=== PATIENT | male | born 1950 | race Caucasian/White ===

== ENCOUNTER 2017-09-08 19:16 | Inpatient (IN) | payer BC ==
[2017-09-08] MEDS ORDERED: Ondansetron INJ* 2 MG/ML VIAL IV ONE (20:50)
[2017-09-08] MEDS ORDERED: Morphine INJ* 4 MG/ML 1 ML CARPUJECT IV ONE (20:50)
[2017-09-08] MEDS ORDERED: NS 0.9% 1000 ML* 1,000 ML IV ONE (20:50)
[2017-09-08 21:27] LABS: Albumin 3.3 g/dL (3.2-5.2); BUN/Creatinine Ratio 20.6 (8-20); Calcium 9.7 mg/dL (8.6-10.3); EGFR African American 94.6 (>60); EGFR Non-African American 73.5 (>60); Potassium 4.1 mmol/L (3.5-5.0); Total Bilirubin 0.5 mg/dL (0.2-1.0); Total Protein 10.3 g/dL (6.4-8.9)
[2017-09-08 21:29] LABS: Troponin I 0.01 ng/mL (<0.04)
[2017-09-08] MEDS ORDERED: Iohexol 300* (CONTRAST) 10 ML SDV IV ONE (22:29)
[2017-09-08 23:50] LABS: Urine Bacteria Absent (Absent); Urine Bilirubin Negative (Negative); Urine Glucose Negative (Negative); Urine Nitrite Negative (Negative)
[2017-09-09 00:31] LABS: Hematocrit 40 % (42-52); Mean Corpuscular HGB Conc 35 g/dl (31-36); Mean Corpuscular Hemoglobin 33 pg (27-31); Mean Corpuscular Volume 94 fL (80-94); Mean Platelet Volume 8 um3 (7.4-10.4); Red Blood Count 4.28 10^6/ul (4.0-5.4); Red Cell Distribution Width 13 % (10.5-15); White Blood Count 8.7 10^3/ul (3.5-10.8)
[2017-09-09] MEDS ORDERED: Acetaminophen SUPP* 650 MG SUPP PR PRN (00:54)
[2017-09-09] MEDS ORDERED: LORazepam INJ* 2 MG/ML 1 ML VIAL IV PRN (00:55)
[2017-09-09] MEDS ORDERED: Ondansetron INJ* 2 MG/ML VIAL IV PRN (00:55)
--- NOTE | 2017-09-09 01:17 | HP ---
H&P (Free Text) History and Physical: PCP: Estelita Dunn MD Date/Time: 09/09/2017 0100 CC: abdominal pain HPI: Mr Conroy is a 66YO male HX recurrent L>R cellulitis currently with a PICC line receiving 2g ceftriaxone daily at 0830 from an admission to [facility] for sepsis 2nd RLE cellulitis from which he was discharged ~10 days ago. He reports onset of loose stool/diarrhea without bloody or black aspect progressing to abdominal pain/cramping & bloating Monday. His last BM was Monday morning and more formed than . There has been no black or bloody content. He has been passing flatus throughout today. He has had decreased PO intake since , some nausea, but only vomited in radiology after drinking contrast for CT. He denies B/U/F of urination, F/C, chest pain, SOB, and sweats. He saw his PCP Monday who gave him collection material to check for C.diff which he has turned into the ED tonight. CT shows SBO which is concerning as he has had no abdominal surgeries. PMedHx recurrent LE cellulitis : 10 in LLE : 2 RLE including the one for which he is currently on TX, reportedly group A strep pre-DM2 HTN MARIA ELENA on CPAP of 11.5 BPH depression Ambulatory Orders Aspirin [Aspirin 81 MG TAB] 81 mg PO 09/09/17 Finasteride TAB* [Proscar TAB*] 5 mg PO DAILY 09/09/17 Hydrochlorothiazide TAB* [Hydrodiuril TAB*] 25 mg PO DAILY 09/09/17 Meloxicam [Mobic] 15 mg PO 09/09/17 Montelukast Sodium TAB* [Singulair TAB*] 10 mg PO DAILY 09/09/17 Solifenacin Succinate [Vesicare] 10 mg PO 09/09/17 Tamsulosin CAP* [Flomax CAP*] 0.4 mg PO DAILY 09/09/17 Venlafaxine HCl [Venlafaxine HCl ER] 75 mg PO 09/09/17 cefTRIAXone(*) [Rocephin(*)] 2 gm IV 09/09/17 Allergies Clindamycin Allergy (Verified 09/08/17 19:26) Hives Sulfamethoxazole w/Trimethoprim [From Bactrim] Allergy (Verified 09/08/17 19:26) Hives PSurgHx R TKA L quadriceps repair tonsillectomy denies abdominal surgery SocHx: no tobacco, rare alcohol, no recreational drugs; lives with his ; retired from [employer] in [place], 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; full code status FamHx: Mother: passed in her 80s 2nd CAD; Father: passed in his 50s 2nd CAD; 1/ 2 sister: unknown; no brothers ROS: as above, otherwise reviewed and all were negative vitals: Vital Signs Temp 36.1 C 09/08/17 19:21 Pulse 101 09/08/17 19:21 Resp 18 09/08/17 21:38 BP 130/83 09/08/17 19:21 Pulse Ox 94 09/08/17 19:21 Intake & Output 09/08/17 09/08/17 09/09/17 11:59 23:59 11:59 Weight 123.831 kg Constitutional: NAD, normally developed, morbidly obese white male HEENM: atraumatic; sclera/conjunctiva: anicteric/clear; hearing: clinically intact; oropharynx: clear, mucosa tacky Neck: soft tissue: non-tender; thyroid: normal Pulmonary: clear to auscultation bilaterally, good aeration, no accessory muscle use CV: RR/RR, normal S1S2, no carotid bruit, no jugular venous distention, 2+ B DP/ PT, 1+ BLE edema Abdominal: soft, non-distended, non-tender, no rebound/guarding/rigidity, normoactive bowel sounds, no hepatosplenomegaly or masses, no costovertebral angle tenderness Musculoskeletal: general: grossly intact, RLE w/ YOSHI wrap Psychiatric orientation: AA&O to PPS affect: calm mood: cooperative eye contact: fair to good content: reliable responses: timely insight: good Testing: Lab Results 09/08/17 09/08/17 09/08/17 Range/Units 21:00 21:00 21:00 WBC 8.7 (3.5-10.8) 10^3/ul RBC 4.28 (4.0-5.4) 10^6/ul Hgb 14.0 (14.0-18.0) g/dl Hct 40 L (42-52) % MCV 94 (80-94) fL MCH 33 H (27-31) pg MCHC 35 (31-36) g/dl RDW 13 (10.5-15) % Plt Count 389 (150-450) 10^3/ul MPV 8 (7.4-10.4) um3 Neut % (Auto) 72.5 (38-83) % Lymph % (Auto) 17.5 L (25-47) % [place] % (Auto) 8.7 (1-9) % Eos % (Auto) 0.7 (0-6) % Baso % (Auto) 0.6 (0-2) % Absolute Neuts (auto) 6.3 (1.5-7.7) 10^3/ul Absolute Lymphs (auto) 1.5 (1.0-4.8) 10^3/ul Absolute Monos (auto) 0.8 (0-0.8) 10^3/ul Absolute Eos (auto) 0.1 (0-0.6) 10^3/ul Absolute Basos (auto) 0.1 (0-0.2) 10^3/ul Absolute Nucleated RBC 0.01 10^3/ul Nucleated RBC % 0.2 INR (Anticoag Therapy) 1.23 H (0.77-1.02) APTT 33.5 (26.0-36.3) seconds Sodium 130 L (133-145) mmol/L Potassium 4.1 (3.5-5.0) mmol/L Chloride 97 L (101-111) mmol/L Carbon Dioxide 27 (22-32) mmol/L Anion Gap 6 (2-11) mmol/L BUN 21 (6-24) mg/dL Creatinine 1.02 (0.67-1.17) mg/dL Est GFR ( Amer) 94.6 (>60) Est GFR (Non-Af Amer) 73.5 (>60) BUN/Creatinine Ratio 20.6 H (8-20) Glucose 113 H (70-100) mg/dL Lactic Acid (0.5-2.0) mmol/L Calcium 9.7 (8.6-10.3) mg/dL Total Bilirubin 0.50 (0.2-1.0) mg/dL AST 18 (13-39) U/L ALT 16 (7-52) U/L Alkaline Phosphatase 41 (34-104) U/L Troponin I 0.01 (<0.04) ng/mL Total Protein 10.3 H (6.4-8.9) g/dL Albumin 3.3 (3.2-5.2) g/dL Globulin 7.0 H (2-4) g/dL Albumin/Globulin Ratio 0.5 L (1-3) Lipase 20 (11.0-82.0) U/L Urine Color Urine Appearance Urine pH (5-9) Ur Specific [place] (1.010-1.030) Urine Protein (Negative) Urine Ketones (Negative) Urine Blood (Negative) Urine Nitrate (Negative) Urine Bilirubin (Negative) Urine Urobilinogen (Negative) Ur Leukocyte Esterase (Negative) Urine WBC (Auto) (Absent) Urine RBC (Auto) (Absent) Ur Squamous Epith Cells (Absent) Urine Bacteria (Absent) Urine Glucose (Negative) 09/08/17 09/08/17 Range/Units 21:00 23:25 WBC (3.5-10.8) 10^3/ul RBC (4.0-5.4) 10^6/ul Hgb (14.0-18.0) g/dl Hct (42-52) % MCV (80-94) fL MCH (27-31) pg MCHC (31-36) g/dl RDW (10.5-15) % Plt Count (150-450) 10^3/ul MPV (7.4-10.4) um3 Neut % (Auto) (38-83) % Lymph % (Auto) (25-47) % [place] % (Auto) (1-9) % Eos % (Auto) (0-6) % Baso % (Auto) (0-2) % Absolute Neuts (auto) (1.5-7.7) 10^3/ul Absolute Lymphs (auto) (1.0-4.8) 10^3/ul Absolute Monos (auto) (0-0.8) 10^3/ul Absolute Eos (auto) (0-0.6) 10^3/ul Absolute Basos (auto) (0-0.2) 10^3/ul Absolute Nucleated RBC 10^3/ul Nucleated RBC % INR (Anticoag Therapy) (0.77-1.02) APTT (26.0-36.3) seconds Sodium (133-145) mmol/L Potassium (3.5-5.0) mmol/L Chloride (101-111) mmol/L Carbon Dioxide (22-32) mmol/L Anion Gap (2-11) mmol/L BUN (6-24) mg/dL Creatinine (0.67-1.17) mg/dL Est GFR ( Amer) (>60) Est GFR (Non-Af Amer) (>60) BUN/Creatinine Ratio (8-20) Glucose (70-100) mg/dL Lactic Acid 0.9 (0.5-2.0) mmol/L Calcium (8.6-10.3) mg/dL Total Bilirubin (0.2-1.0) mg/dL AST (13-39) U/L ALT (7-52) U/L Alkaline Phosphatase (34-104) U/L Troponin I (<0.04) ng/mL Total Protein (6.4-8.9) g/dL Albumin (3.2-5.2) g/dL Globulin (2-4) g/dL Albumin/Globulin Ratio (1-3) Lipase (11.0-82.0) U/L Urine Color Ebony Urine Appearance Cloudy Urine pH 5.0 (5-9) Ur Specific [place] 1.038 H (1.010-1.030) Urine Protein 1+(30 mg/dl) H (Negative) Urine Ketones Negative (Negative) Urine Blood 1+ H (Negative) Urine Nitrate Negative (Negative) Urine Bilirubin Negative (Negative) Urine Urobilinogen Negative (Negative) Ur Leukocyte Esterase Negative (Negative) Urine WBC (Auto) Absent (Absent) Urine RBC (Auto) 3+(>10/hpf) H (Absent) Ur Squamous Epith Cells Present H (Absent) Urine Bacteria Absent (Absent) Urine Glucose Negative (Negative) ECG, personally reviewed: NSR rate 94, no ischemia CT abd/pel W, personally reviewed: FINDINGS: Positive for small bowel obstruction. There are multiple moderately dilated loops of small bowel with air -fluid levels. Collapsed loops distally. There is also mesenteric congestion associated with the dilated loops indicating some degree of mesenteric venous obstruction as well. Transition zone appears to be in a loop of bowel at the jejunoileal junction in where there is a narrowed segment of small bowel. Uncertain if this is a true stricture or just peristalsis in an area of adhesion. No free intraperitoneal air or fluid. Negative for colitis or diverticulitis. Normal appendix. There is some sludge and stones in a moderately distended gallbladder. Normal liver. Normal spleen. Normal pancreas. Normal adrenal glands. Impression: 66M presenting with abdominal pain and CT finding of SBO DIAGNOSIS & PLAN Primary SBO : NPO for bowel rest : NG to low intermittent suction : strict I&Os : IVFs : pain control : consider surgical consult in AM : supportive care RLE on outpatient TX via PICC for group A strep : obtain records from Dr Franz & Sulaiman general : continue daily 2g ceftriaxone IV at 0830 Secondary pre-DM2 : consistent carb diet : ACHS glucometry : correctional lispro HTN : hold HCTZ for now, monitor MARIA ELENA : continue CPAP of 11.5 BPH : continue finasteride, solifenacin, & tamsulosin depression : continue venlafaxine Admission Rational: inpatient for management of SBO not anticipated to be adequately resolved w/i 48h to allow for discharge DVTp: heparin SQ Code Status: full HCP:
--- NOTE | 2017-09-09 01:55 | ED ---
Jose Armando Sands Tiffany scriblavell for Tian Seaman on 09/08/17 at 2056 . Abdominal Pain/Male - HPI Summary HPI Summary: This patient is a 66 year old M referred from [facility] to [facility] accompanied by with a chief complaint of abdominal pain since a couple of days ago, worse since today. The pain is tight. The patient rates the pain 5/10 in severity. Symptoms aggravated by nothing. Symptoms alleviated by nothing. Patient reports diarrhea and nausea. Patient denies bloody stools and vomiting. The patient denies abdominal surgical history. - History of Current Complaint Chief Complaint: EDAbdPain Stated Complaint: BLOATING/ABD PAIN Time Seen by Provider: 09/08/17 20:43 Hx Obtained From: Patient Onset/Duration: Lasting Days - A couple, Still Present, Worse Since - Today Severity Currently: Moderate Pain Intensity: 6 Pain Scale Used: 0-10 Numeric Location: Diffuse Character: Other: - Tight Aggravating Factor(s): Nothing Alleviating Factor(s): Nothing Associated Signs And Symptoms: Positive: Nausea, Diarrhea. Negative: Blood in Stool, Vomiting - Allergies/Home Medications Allergies/Adverse Reactions: Allergies Allergy/AdvReac Type Severity Reaction Status Date / Time Clindamycin Allergy Hives Verified 09/08/17 19:26 Sulfamethoxazole Allergy Hives Verified 09/08/17 19:26 w/Trimethoprim [From Bactrim] PMH/Surg Hx/FS Hx/Imm Hx Previously Healthy: No - Hx of cellulitis, PICC line Opthamlomology History: Denies: Hx Legally Blind EENT History: Denies: Hx Deafness Infectious Disease History: No Infectious Disease History: Denies: Traveled Outside the [place] in Last 30 Days - Family History Known Family History: Positive: Other - Mother had heart problems - Social History Alcohol Use: Occasionally Hx Substance Use: No Substance Use Type: Reports: None Hx Tobacco Use: No Review of Systems Negative: Fever Positive: Abdominal Pain, Diarrhea, Nausea, Other - NEGATIVE: bloody stool. Negative: Vomiting All Other Systems Reviewed And Are Negative: Yes Physical Exam - Summary Physical Exam Summary: Appearance: Well appearing, no pain distress Skin: warm, dry, reflects adequate perfusion Head/face: normal Eyes: EOMI, MOHIT ENT: normal Neck: supple, non-tender Respiratory: CTA, breath sounds present Cardiovascular: RRR, pulses symmetrical Abdomen: Abdomen is distended, tenderness in LLQ Bowel: present Musculoskeletal: normal, strength/ROM intact Neuro: normal, sensory motor intact, A&Ox3 Triage Information Reviewed: Yes Vital Signs On Initial Exam: Initial Vitals Temp Pulse Resp BP Pulse Ox 97 F 101 18 130/83 94 09/08/17 19:21 09/08/17 19:21 09/08/17 19:21 09/08/17 19:21 09/08/17 19:21 Vital Signs Reviewed: Yes Diagnostics - Vital Signs Vital Signs Temp Pulse Resp BP Pulse Ox 09/08/17 19:21 97 F 101 18 130/83 94 - Laboratory Lab Results: Lab Results 09/08/17 09/08/17 09/08/17 Range/Units 21:00 21:00 21:00 WBC 8.7 (3.5-10.8) 10^3/ul RBC 4.28 (4.0-5.4) 10^6/ul Hgb 14.0 (14.0-18.0) g/dl Hct 40 L (42-52) % MCV 94 (80-94) fL MCH 33 H (27-31) pg MCHC 35 (31-36) g/dl RDW 13 (10.5-15) % Plt Count 389 (150-450) 10^3/ul MPV 8 (7.4-10.4) um3 Neut % (Auto) 72.5 (38-83) % Lymph % (Auto) 17.5 L (25-47) % [place] % (Auto) 8.7 (1-9) % Eos % (Auto) 0.7 (0-6) % Baso % (Auto) 0.6 (0-2) % Absolute Neuts (auto) 6.3 (1.5-7.7) 10^3/ul Absolute Lymphs (auto) 1.5 (1.0-4.8) 10^3/ul Absolute Monos (auto) 0.8 (0-0.8) 10^3/ul Absolute Eos (auto) 0.1 (0-0.6) 10^3/ul Absolute Basos (auto) 0.1 (0-0.2) 10^3/ul Absolute Nucleated RBC 0.01 10^3/ul Nucleated RBC % 0.2 INR (Anticoag Therapy) 1.23 H (0.77-1.02) APTT 33.5 (26.0-36.3) seconds Sodium 130 L (133-145) mmol/L Potassium 4.1 (3.5-5.0) mmol/L Chloride 97 L (101-111) mmol/L Carbon Dioxide 27 (22-32) mmol/L Anion Gap 6 (2-11) mmol/L BUN 21 (6-24) mg/dL Creatinine 1.02 (0.67-1.17) mg/dL Est GFR ( Amer) 94.6 (>60) Est GFR (Non-Af Amer) 73.5 (>60) BUN/Creatinine Ratio 20.6 H (8-20) Glucose 113 H (70-100) mg/dL Lactic Acid (0.5-2.0) mmol/L Calcium 9.7 (8.6-10.3) mg/dL Total Bilirubin 0.50 (0.2-1.0) mg/dL AST 18 (13-39) U/L ALT 16 (7-52) U/L Alkaline Phosphatase 41 (34-104) U/L Troponin I 0.01 (<0.04) ng/mL Total Protein 10.3 H (6.4-8.9) g/dL Albumin 3.3 (3.2-5.2) g/dL Globulin 7.0 H (2-4) g/dL Albumin/Globulin Ratio 0.5 L (1-3) Lipase 20 (11.0-82.0) U/L Urine Color Urine Appearance Urine pH (5-9) Ur Specific [place] (1.010-1.030) Urine Protein (Negative) Urine Ketones (Negative) Urine Blood (Negative) Urine Nitrate (Negative) Urine Bilirubin (Negative) Urine Urobilinogen (Negative) Ur Leukocyte Esterase (Negative) Urine WBC (Auto) (Absent) Urine RBC (Auto) (Absent) Ur Squamous Epith Cells (Absent) Urine Bacteria (Absent) Urine Glucose (Negative) 09/08/17 09/08/17 Range/Units 21:00 23:25 WBC (3.5-10.8) 10^3/ul RBC (4.0-5.4) 10^6/ul Hgb (14.0-18.0) g/dl Hct (42-52) % MCV (80-94) fL MCH (27-31) pg MCHC (31-36) g/dl RDW (10.5-15) % Plt Count (150-450) 10^3/ul MPV (7.4-10.4) um3 Neut % (Auto) (38-83) % Lymph % (Auto) (25-47) % [place] % (Auto) (1-9) % Eos % (Auto) (0-6) % Baso % (Auto) (0-2) % Absolute Neuts (auto) (1.5-7.7) 10^3/ul Absolute Lymphs (auto) (1.0-4.8) 10^3/ul Absolute Monos (auto) (0-0.8) 10^3/ul Absolute Eos (auto) (0-0.6) 10^3/ul Absolute Basos (auto) (0-0.2) 10^3/ul Absolute Nucleated RBC 10^3/ul Nucleated RBC % INR (Anticoag Therapy) (0.77-1.02) APTT (26.0-36.3) seconds Sodium (133-145) mmol/L Potassium (3.5-5.0) mmol/L Chloride (101-111) mmol/L Carbon Dioxide (22-32) mmol/L Anion Gap (2-11) mmol/L BUN (6-24) mg/dL Creatinine (0.67-1.17) mg/dL Est GFR ( Amer) (>60) Est GFR (Non-Af Amer) (>60) BUN/Creatinine Ratio (8-20) Glucose (70-100) mg/dL Lactic Acid 0.9 (0.5-2.0) mmol/L Calcium (8.6-10.3) mg/dL Total Bilirubin (0.2-1.0) mg/dL AST (13-39) U/L ALT (7-52) U/L Alkaline Phosphatase (34-104) U/L Troponin I (<0.04) ng/mL Total Protein (6.4-8.9) g/dL Albumin (3.2-5.2) g/dL Globulin (2-4) g/dL Albumin/Globulin Ratio (1-3) Lipase (11.0-82.0) U/L Urine Color [place] Urine Appearance Cloudy Urine pH 5.0 (5-9) Ur Specific [place] 1.038 H (1.010-1.030) Urine Protein 1+(30 mg/dl) H (Negative) Urine Ketones Negative (Negative) Urine Blood 1+ H (Negative) Urine Nitrate Negative (Negative) Urine Bilirubin Negative (Negative) Urine Urobilinogen Negative (Negative) Ur Leukocyte Esterase Negative (Negative) Urine WBC (Auto) Absent (Absent) Urine RBC (Auto) 3+(>10/hpf) H (Absent) Ur Squamous Epith Cells Present H (Absent) Urine Bacteria Absent (Absent) Urine Glucose Negative (Negative) Result Diagrams: 09/08/17 21:00 09/08/17 21:00 Lab Statement: Any lab studies that have been ordered have been reviewed, and results considered in the medical decision making process. - CT Abd/Pel CT Interpretation Completed By: Radiologist - Positive for small bowel obstruction. There are multiple moderately dilated loops of small bowel with air -fluid levels. Collapsed loops distally. There is also mesenteric congestion associated with the dilated loops indicating some degree of mesenteric venous obstruction as well. Transition zone appears to be in a loop of bowel at the jejunoileal junction in where there is a narrowed segment of small bowel. Uncertain if this is a true stricture or just peristalsis in an area of adhesion. No free intraperitoneal air or free fluid. Negative for colitis or diverticulitis. Normal appendix. There is some sludge and stones in a moderately distended gallbladder. Normal liver. Normal spleen. Normal pancreas. Normal adrenal glands. Normal kidneys urinary tract and urinary bladder. ED physician has reviewed this radiology report. - EKG 20:58 Cardiac Rate: NL EKG Rhythm: Sinus Rhythm - 94 BPM EKG Interpretation: No acute changes Abdominal Pain Fem Course/Dx - Course Course Of Treatment: This patient is a 66 year old M referred from [facility] to [facility] accompanied by with a chief complaint of abdominal pain since a couple of days ago, worse since today. An EKG reveals sinus rhythm (94 BPM) and no acute changes. CT Abd/Pel reveals, per radiologist, Positive for small bowel obstruction. There are multiple moderately dilated loops of small bowel with air-fluid levels. Collapsed loops distally. There is also mesenteric congestion associated with the dilated loops indicating some degree of mesenteric venous obstruction as well. Transition zone appears to be in a loop of bowel at the jejunoileal junction in where there is a narrowed segment of small bowel. Uncertain if this is a true stricture or just peristalsis in an area of adhesion. No free intraperitoneal air or free fluid. Negative for colitis or diverticulitis. Normal appendix. There is some sludge and stones in a moderately distended gallbladder. Normal liver. Normal spleen. Normal pancreas. Normal adrenal glands. Normal kidneys urinary tract and urinary bladder. Bloodwork/UA obtained. In the ED course the patient was given Morphine and Zofran. We discussed patient care with Dr. Pruett (hospitalist) who agreed to admit the patient. as per discussion he will call surgery am for consult. The patient is agreeable with this plan. - Diagnoses Differential Diagnosis/HQI/PQRI: Bowel Obstruction, Constipation, Diverticulitis , Urinary Tract Infection Provider Diagnoses: Small bowel obstruction - Provider Notifications Discussed Care Of Patient With: Cyrus Pruett Time Discussed With Above Provider: 00:20 Instructed by Provider To: Other - Dr. Pruett (hospitalist) agreed to admit the patient Discharge - Discharge Plan Condition: Fair Disposition: ADMITTED TO [facility] The documentation as recorded by the Jose Armando qureshi Tiffany accurately reflects the service I personally performed and the decisions made by , Tian Seaman.
[2017-09-09 03:38] LABS: EGFR African American 100.2 (>60); EGFR Non-African American 77.9 (>60)
[2017-09-09] MEDS: NS 0.9% 1000 ML* 1,000 ML IV SCH ×3 (04:27→20:58)
[2017-09-09] MEDS: fentaNYL* 50 MCG/ML 2 ML VIAL (100 MCG VIAL) IV SLOW PU PRN ×2 (05:07→22:55)
[2017-09-09 05:24] LABS: Hematocrit 35 % (42-52); Mean Corpuscular HGB Conc 35 g/dl (31-36); Mean Corpuscular Hemoglobin 32 pg (27-31); Mean Corpuscular Volume 93 fL (80-94); Mean Platelet Volume 7 um3 (7.4-10.4); Red Blood Count 3.73 10^6/ul (4.0-5.4); Red Cell Distribution Width 13 % (10.5-15); White Blood Count 7.1 10^3/ul (3.5-10.8)
[2017-09-09 05:38] LABS: BUN/Creatinine Ratio 24.7 (8-20); Calcium 8.9 mg/dL (8.6-10.3); EGFR African American 116.7 (>60); EGFR Non-African American 90.7 (>60); Potassium 3.8 mmol/L (3.5-5.0)
[2017-09-09] MEDS: Aspirin EC Low Dose* 81 MG TAB.EC PO SCH (08:19)
[2017-09-09] MEDS: Finasteride TAB* 5 MG PO SCH (08:19)
[2017-09-09] MEDS: Tamsulosin CAP* 0.4 MG PO SCH (08:20)
[2017-09-09] MEDS: Venlafaxine EXT RELEASE CAP* 75 MG PO SCH (08:20)
[2017-09-09] MEDS: CMCS Solifenacin(NF) 5 MG TAB PO SCH (08:20)
[2017-09-09] MEDS: Montelukast Sodium TAB* 10 MG PO SCH (08:20)
--- NOTE | 2017-09-09 08:50 | RAD ---
Indication: Abdominal distention. Contrast: Administered 127.2 ml of OMNIPAQUE 300 mg/ml CT of the abdomen and pelvis was performed after oral and IV contrast administration. Coronal and sagittal reconstructed images were obtained. The lung bases demonstrate no pleural fluid, nodules or masses. Heart is of normal size without evidence of pericardial effusion. Liver is normal in size. No focal lesions or intrahepatic ductal dilatation is noted. The gallbladder demonstrates some high density material in the dependent portion and the possibility of cholelithiasis should BE considered. No pericholecystic fluid or wall thickening is identified. The pancreas demonstrates no mass or pancreatic duct dilatation. The spleen is normal in size. Nodularity of the adrenal glands is noted likely representing adrenal hyperplasia. There may be a small nodule in the left adrenal gland measuring 11 mm. The kidneys demonstrate symmetric nephrograms without hydronephrosis. Aorta and inferior vena cava are unremarkable. Retroperitoneal lymph nodes with fatty hilum measuring 10 mm is noted. There is a dilated stomach noted. Moderately dilated loops of small bowel are noted. There are collapsed loops of distal bowel and there is likely a zone of transition in the right lower quadrant. This may represent an early or partial small bowel obstruction. There is partially collapsed colon with fluid and stool in the within it. No hernias are identified. The colon demonstrates fluid throughout the colon. CT of the pelvis demonstrates no retroperitoneal or pelvic lymphadenopathy. The urinary bladder is otherwise unremarkable. IMPRESSION: There is suggestion of a small bowel obstruction. There appears to be a zone of transition just to the right of midline in the pelvis. No other masses or fluid collections are identified. Degenerative changes of the lumbar spine is noted at multiple levels.
[2017-09-09] MEDS: Famotidine IV* 10 MG/ML 2 ML (20 mg) IV SCH ×2 (08:52→20:52)
[2017-09-09] MEDS: cefTRIAXone VIAL(*) 2,000 MG in NS 0.9% 100 ML* 100 ML IVPB SCH (08:57)
[2017-09-09] MEDS ORDERED: Influenza VAC *QUAD* 2017-18* 0.5 ML SYRINGE IM ONE (09:00)
[2017-09-09] MEDS ORDERED: Famotidine IV * 20 MG in NS 0.9% 100 ML* 100 ML IVPB SCH (09:00)
[2017-09-10] MEDS: NS 0.9% 1000 ML* 1,000 ML IV SCH ×2 (06:04→17:12)
[2017-09-10] MEDS: Heparin VIAL(*) 5000 UNITS/ML VIAL (FIVE THOUSAND) SUBCUT SCH ×3 (06:05→20:33)
[2017-09-10] MEDS: cefTRIAXone VIAL(*) 2,000 MG in NS 0.9% 100 ML* 100 ML IVPB SCH (08:30)
--- NOTE | 2017-09-10 09:16 | PN ---
Subjective Date of Service: 09/10/17 Interval History: Patient here w/ SBO. Tolerating NG tube. Has not passed flatus or stool. Minimal abdominal discomfort. Has no h/o abdominal surgery. RT knee painful, difficult to bear weight. Had cellulitis RLE few weeks ago. Has appt in [place] w/ orthopedics to evaluate. Family History: Unchanged from Admission Social History: Unchanged from Admission Past Medical History: Unchanged from Admission Objective Active Medications: Acetaminophen (Tylenol Supp*) 650 mg ID Q6H PRN PRN Reason: FEVER/PAIN Aspirin (Aspirin Ec Low Dose*) 81 mg PO DAILY [facility] Last Admin: 09/09/17 08:19 Dose: Not Given Famotidine (Pepcid Iv*) 20 mg IV BID [facility] Last Admin: 09/09/17 20:52 Dose: 20 mg Fentanyl Citrate (Fentanyl*) 25 mcg IV SLOW PU Q2H PRN PRN Reason: PAIN Last Admin: 09/09/17 22:55 Dose: 25 mcg Finasteride (Proscar Tab*) 5 mg PO DAILY [facility] Last Admin: 09/09/17 08:19 Dose: Not Given Heparin Sodium (Porcine) (Heparin Vial(*)) 5,000 units SUBCUT Q8HR [facility] Last Admin: 09/10/17 06:05 Dose: 5,000 units Heparin Sodium (Porcine) (Heparin Flush Picc/Ml/Cvc(*)) 1 - 3 ml FLUSH 0600, 1800 [facility] PRN Reason: Protocol Last Admin: 09/10/17 06:06 Dose: 1 ml Sodium Chloride (Ns 0.9% 1000 Ml*) 1,000 mls @ 125 mls/hr IV PER RATE [facility] Last Admin: 09/10/17 06:04 Dose: 125 mls/hr Ceftriaxone Sodium 2,000 mg/ (Sodium Chloride) 100 mls @ 400 mls/hr IVPB 0830 [facility] Last Admin: 09/10/17 08:30 Dose: 400 mls/hr Lorazepam (Ativan Inj*) 0.5 mg IV BEDTIME PRN PRN Reason: SLEEP Montelukast Sodium (Singulair Tab*) 10 mg PO DAILY [facility] Last Admin: 09/09/17 08:20 Dose: Not Given Ondansetron HCl (Zofran Inj*) 4 mg IV Q6H PRN PRN Reason: NAUSEA Solifenacin (Vesicare(Nf)) 10 mg PO DAILY [facility] Last Admin: 09/09/17 08:20 Dose: Not Given Tamsulosin HCl (Flomax Cap*) 0.4 mg PO DAILY [facility] Last Admin: 09/09/17 08:20 Dose: Not Given Venlafaxine HCl (Effexor Xr Cap*) 75 mg PO DAILY [facility] Last Admin: 09/09/17 08:20 Dose: Not Given Vital Signs - 8 hr 09/10/17 04:08 Temperature 36.9 C Pulse Rate 76 Respiratory 16 Rate Blood Pressure 137/79 (mmHg) O2 Sat by Pulse 93 Oximetry Oxygen Devices in Use Now: None Appearance: no distress Ears/Nose/Mouth/Throat: Clear Oropharnyx Neck: NL Appearance and Movements; NL JVP Respiratory: Symmetrical Chest Expansion and Respiratory Effort, Clear to Auscultation Cardiovascular: NL Sounds; No Murmurs; No JVD Abdominal: NL Sounds; No Tenderness; No Distention Extremities: - - RT knee enlarged, warm, no effusion. RT distal LE w/o significant erythema, edema Neurological: Alert and Oriented x 3 Lines/Tubes/Other Access: Clean, Dry and Intact Naso-enteral Tube, Clean, Dry and Intact Peripheral IV Result Diagrams: 09/09/17 05:07 09/09/17 05:07 Additional Lab and Data: Laboratory Tests 09/08/17 09/08/17 09/08/17 21:00 21:00 21:00 Hemoglobin A1c 6.2 H Lactic Acid 0.9 Total Protein 10.3 H Albumin 3.3 Microbiology and Other Data: Microbiology 09/09/17 05:40 Nasal Screen MRSA (PCR)([facility]) - Final Nasal Mrsa Negative Assess/Plan/Problems-Billing Assessment: 66 year old man admitted w/ SBO, no history of abdominal surgery. - Patient Problems (1) Small bowel obstruction Current Visit: Yes Status: Acute Priority: High Code(s): K56.609 - UNSP INTESTNL OBST, UNSP TO PARTIAL VERSUS COMPLETE OBST SNOMED Code(s): 599592661 Comment: - Continue bowel rest, NGT - maintain hydration w/ IV saline - monitor electrolytes - will discuss with Dr. Phelps, unusual to have SBO w/o history of surgery (2) DVT prophylaxis Current Visit: Yes Status: Chronic Priority: Low Code(s): IFT5646 - SNOMED Code(s): 846894607 Comment: - SCDs (3) Paraproteinemia Current Visit: Yes Status: Chronic Priority: Medium Code(s): D89.2 - HYPERGAMMAGLOBULINEMIA, UNSPECIFIED SNOMED Code(s): 606133760 Comment: - patient has very high serum protein, low albumin, will check SPEP , may have MGUS (4) Septic arthritis of knee, right Current Visit: Yes Status: Acute Priority: Medium Code(s): M00.9 - PYOGENIC ARTHRITIS, UNSPECIFIED SNOMED Code(s): 918532270 Comment: -RT knee warm, painful to bear weight, known h/o replacement -Will check CRP, ESR re deep infection -Will ask orthopedics to evaluate, consider joint tap Status and Disposition: continued inpatient stay for consults, NG tube management
[2017-09-10] MEDS: Finasteride TAB* 5 MG PO SCH (09:26)
[2017-09-10] MEDS: Aspirin EC Low Dose* 81 MG TAB.EC PO SCH (09:26)
[2017-09-10] MEDS: Montelukast Sodium TAB* 10 MG PO SCH (09:26)
[2017-09-10] MEDS: Venlafaxine EXT RELEASE CAP* 75 MG PO SCH (09:27)
[2017-09-10] MEDS: CMCS Solifenacin(NF) 5 MG TAB PO SCH (09:27)
[2017-09-10] MEDS: Tamsulosin CAP* 0.4 MG PO SCH (09:27)
[2017-09-10] MEDS: Famotidine IV* 10 MG/ML 2 ML (20 mg) IV SCH ×2 (09:30→20:33)
--- NOTE | 2017-09-10 12:51 | RAD ---
Indication: Follow-up small bowel obstruction Flat plate of the abdomen demonstrates nasogastric tube in place. Moderately dilated loops of small bowel are noted. There is contrast in the colon. No organomegaly is noted. IMPRESSION: Contrast in the colon. Dilated air-fluid levels consistent with small bowel obstruction persists.
--- NOTE | 2017-09-10 12:52 | RAD ---
Indication: Right knee pain. 2 views of the right knee demonstrates a suprapatellar effusion. Right knee prosthesis is present. IMPRESSION: Suprapatellar effusion. Patient is status post right knee replacement.
[2017-09-10] MEDS: fentaNYL* 50 MCG/ML 2 ML VIAL (100 MCG VIAL) IV SLOW PU PRN (19:24)
[2017-09-10] MEDS ORDERED: Morphine INJ* 2 MG/ML 1 ML SYRINGE (TWO MG - NEW SYRINGE VERSION) IV PRN (19:31)
--- NOTE | 2017-09-10 21:34 | CONS ---
CC: Fernando Dunn MD SURGICAL CONSULTATION REPORT: DATE OF CONSULT: 09/10/17 REASON FOR CONSULT: Small bowel obstruction. HISTORY OF PRESENT ILLNESS: This is a 66-year-old gentleman with no history of prior abdominal surgery, who has been undergoing a long-term IV antibiotic treatment for recurrent lower extremity cellulitis and concern of seeding of total knee replacement. He presented to the [facility] with abdominal bloating and pain, colicky in nature, which began on Monday, . He had a bowel movement, Monday morning, but had not passed any flatus on Monday. He came to the emergency room Monday evening and then Monday early childhood worker was admitted with a diagnosis of small bowel obstruction based on CT findings. Over the course of the past day, the patient was managed with nasogastric tube decompression, IV fluids, and he reports he feels his pain is better. He did have a small bowel movement and passed gas once this morning. He denies any nausea or vomiting associated with this episode. He has had no previous episodes of obstructions in the past. He denies any recent travel or sick contacts. He denies any deviation from his typical diet and reports his initial concern, based on his symptoms. was that he may have C. diff colitis, which he has had in the past. He is having no fevers or chills. PAST MEDICAL HISTORY: High blood pressure; recurrent cellulitis, lower extremities; obstructive sleep apnea; prediabetic; BPH; depression. PAST SURGICAL HISTORY: Left quadriceps repair, right total knee replacement, and tonsillectomy in 1960s. MEDICATIONS: Home medications are: 1. Hydrochlorothiazide. 2. Singulair. 3. Finasteride. 4. Flomax. 5. Rocephin. 6. Venlafaxine. 7. VESIcare. 8. Mobic. 9. Aspirin. ALLERGIES: CLINDAMYCIN and BACTRIM. FAMILY HISTORY: Mother had coronary artery disease and father had coronary artery disease. SOCIAL HISTORY: Not a smoker. 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 He is . REVIEW OF SYSTEMS: A 14-point review of systems was completed and significant for the above-mentioned history; otherwise is negative. PHYSICAL EXAM: He is an obese 66-year-old gentleman in no acute distress. HEENT Examination: Reveals NG tube in good position. Head is normocephalic and atraumatic. Sclerae anicteric. Neck is symmetrical and trachea is midline. Lungs are clear to auscultation bilaterally without wheezes, rales, or rhonchi. Heart: Regular S1, S2, but no murmurs, rubs or gallops. Abdomen: Obese and without scars. Bowel sounds are present. It is soft with some mild diffuse tenderness with no rebound or guarding. There are no hernias palpated. He has rectus diastasis. Extremities are warm. DIAGNOSTIC STUDIES/LAB DATA: From 09/09/17, WBC shows 7.1, hemoglobin was 12.0 , hematocrit 35, platelet count 328. Sodium 131, potassium 3.8, chloride 100, bicarb 26, BUN 21, creatinine 0.85, glucose 115. CT scan images were reviewed. Findings were notable for dilated loops of small and large bowel with evidence of air and fluid within the colon. An area of decompressed small bowel exists towards the right side of the pelvis and there is no inflammatory change noted. Abdominal x-ray from 09/10/17 was reviewed and shows contrast within the large bowel with moderately dilated loops of small bowel. IMPRESSION: A 66-year-old male with resolving obstructive bowel process. It is unclear if this is actually a partial primary small bowel obstruction with no cardinal findings versus a functional bowel obstruction (ileus). He does not have a surgical abdomen. PLAN/RECOMMENDATIONS: The patient does seem to be improving with IV hydration and nasogastric decompression and so would continue the same. Repeat x-ray in the morning to check his progress. There is no plan for a surgical intervention at this time and the plan was discussed with the patient and his , who agreed. [facility] will continue to follow with you. [id number]/[facility] #: [id number] [facility]TD[facility]
[2017-09-11] MEDS: NS 0.9% 1000 ML* 1,000 ML IV SCH ×2 (03:26→11:54)
[2017-09-11] MEDS: Heparin VIAL(*) 5000 UNITS/ML VIAL (FIVE THOUSAND) SUBCUT SCH ×3 (05:18→22:00)
[2017-09-11 05:54] LABS: Hematocrit 34 % (42-52); Hemoglobin 11.7 g/dl (14.0-18.0); Mean Corpuscular HGB Conc 35 g/dl (31-36); Mean Corpuscular Hemoglobin 32 pg (27-31); Mean Corpuscular Volume 92 fL (80-94); Mean Platelet Volume 7 um3 (7.4-10.4); Red Blood Count 3.65 10^6/ul (4.0-5.4); Red Cell Distribution Width 13 % (10.5-15)
[2017-09-11 06:02] LABS: BUN/Creatinine Ratio 22.2 (8-20); Calcium 8.5 mg/dL (8.6-10.3); EGFR African American 164.9 (>60); EGFR Non-African American 128.2 (>60); Potassium 3.5 mmol/L (3.5-5.0)
[2017-09-11] MEDS ORDERED: Docusate CAP* 100 MG PO PRN (07:58)
[2017-09-11] MEDS ORDERED: Glycerin ADULT SUPP PR PRN (07:58)
[2017-09-11] MEDS: Finasteride TAB* 5 MG PO SCH (08:27)
[2017-09-11] MEDS: Famotidine IV* 10 MG/ML 2 ML (20 mg) IV SCH ×2 (08:27→19:48)
[2017-09-11] MEDS: Venlafaxine EXT RELEASE CAP* 75 MG PO SCH (08:27)
[2017-09-11] MEDS: Aspirin EC Low Dose* 81 MG TAB.EC PO SCH (08:27)
[2017-09-11] MEDS: Montelukast Sodium TAB* 10 MG PO SCH (08:27)
[2017-09-11] MEDS: Tamsulosin CAP* 0.4 MG PO SCH (08:27)
[2017-09-11] MEDS: cefTRIAXone VIAL(*) 2,000 MG in NS 0.9% 100 ML* 100 ML IVPB SCH (08:27)
--- NOTE | 2017-09-11 08:43 | RAD ---
INDICATION: Small bowel obstruction, follow-up. COMPARISON: Comparison is made with a prior CT of the abdomen and pelvis from September 08, 2017 and a prior KUB series from September 10, 2017 TECHNIQUE: Supine and upright views of the abdomen were obtained. FINDINGS: There is a nasogastric tube present. The catheter tip projects in the left upper quadrant. The side port is at the level of the gastroesophageal junction. Contrast is seen throughout the colon from the prior CT study. The small bowel colon appear nondistended. The previously noted mild small bowel distention appears resolved. No free intraperitoneal air is seen. IMPRESSION: RESOLVING SMALL BOWEL OBSTRUCTION.
--- NOTE | 2017-09-11 08:59 | PN ---
Subjective Date of Service: 09/11/17 Interval History: Patient had small bowel movement yesterday and this morning. He is passing flatus. He tolerated clamping NG tube and taking a few pills this morning. Seen by Dr. Phelps for surgery consult yesterday. Sees Dr. Arriaga in [place] for urology. Family History: Unchanged from Admission Social History: Unchanged from Admission Past Medical History: Unchanged from Admission Objective Active Medications: Acetaminophen (Tylenol Supp*) 650 mg UT Q6H PRN PRN Reason: FEVER/PAIN Aspirin (Aspirin Ec Low Dose*) 81 mg PO DAILY [facility] Last Admin: 09/11/17 08:27 Dose: 81 mg Docusate Sodium (Colace Cap*) 100 mg PO BID PRN PRN Reason: CONSTIPATION Last Admin: 09/11/17 08:27 Dose: 100 mg Famotidine (Pepcid Iv*) 20 mg IV BID [facility] Last Admin: 09/11/17 08:27 Dose: 20 mg Finasteride (Proscar Tab*) 5 mg PO DAILY [facility] Last Admin: 09/11/17 08:27 Dose: 5 mg Glycerin (Glycerin Adult Supp*) 1 supp UT DAILY PRN PRN Reason: CONSTIPATION Heparin Sodium (Porcine) (Heparin Vial(*)) 5,000 units SUBCUT Q8HR [facility] Last Admin: 09/11/17 05:18 Dose: 5,000 units Heparin Sodium (Porcine) (Heparin Flush Picc/Ml/Cvc(*)) 1 - 3 ml FLUSH 0600, 1800 [facility] PRN Reason: Protocol Last Admin: 09/11/17 05:18 Dose: 1 ml Sodium Chloride (Ns 0.9% 1000 Ml*) 1,000 mls @ 125 mls/hr IV PER RATE [facility] Last Admin: 09/11/17 03:26 Dose: 125 mls/hr Ceftriaxone Sodium 2,000 mg/ (Sodium Chloride) 100 mls @ 400 mls/hr IVPB 0830 [facility] Last Admin: 09/11/17 08:27 Dose: 400 mls/hr Lorazepam (Ativan Inj*) 0.5 mg IV BEDTIME PRN PRN Reason: SLEEP Montelukast Sodium (Singulair Tab*) 10 mg PO DAILY [facility] Last Admin: 09/11/17 08:27 Dose: 10 mg Morphine Sulfate (Morphine Inj (Syringe)*) 2 mg IV Q4H PRN PRN Reason: PAIN - MILD Ondansetron HCl (Zofran Inj*) 4 mg IV Q6H PRN PRN Reason: NAUSEA Tamsulosin HCl (Flomax Cap*) 0.4 mg PO DAILY [facility] Last Admin: 09/11/17 08:27 Dose: 0.4 mg Venlafaxine HCl (Effexor Xr Cap*) 75 mg PO DAILY [facility] Last Admin: 09/11/17 08:27 Dose: 75 mg Vital Signs - 8 hr 09/11/17 09/11/17 09/11/17 03:24 07:30 08:00 Temperature 36.8 C 36.8 C Pulse Rate 73 72 Respiratory 16 17 17 Rate Blood Pressure 154/82 123/75 (mmHg) O2 Sat by Pulse 95 98 Oximetry Oxygen Devices in Use Now: None Appearance: alert, no distress Eyes: No Scleral Icterus Neck: NL Appearance and Movements; NL JVP Respiratory: Symmetrical Chest Expansion and Respiratory Effort Cardiovascular: NL Sounds; No Murmurs; No JVD Abdominal: NL Sounds; No Tenderness; No Distention, No Hepatosplenomegaly Skin: - - RLE w/ chronic venous stasis changes Neurological: Alert and Oriented x 3, NL Gait Lines/Tubes/Other Access: Clean, Dry and Intact Peripheral IV, Clean, Dry and Intact PICC Line - LT UE Result Diagrams: 09/11/17 05:25 09/11/17 05:25 Assess/Plan/Problems-Billing Assessment: 66 year old man admitted w/ SBO, no history of abdominal surgery. - Patient Problems (1) Small bowel obstruction Current Visit: Yes Status: Acute Priority: High Code(s): K56.609 - UNSP INTESTNL OBST, UNSP TO PARTIAL VERSUS COMPLETE OBST SNOMED Code(s): 273568838 Comment: - patient improving, can clamp NGT and try clear liquids. - reduce rate of IV saline - electrolytes stable (2) DVT prophylaxis Current Visit: Yes Status: Chronic Priority: Low Code(s): YHQ9864 - SNOMED Code(s): 896234841 Comment: - SCDs (3) Paraproteinemia Current Visit: Yes Status: Chronic Priority: Medium Code(s): D89.2 - HYPERGAMMAGLOBULINEMIA, UNSPECIFIED SNOMED Code(s): 140791604 Comment: - SPEP pending, may have MGUS (4) Septic arthritis of knee, right Current Visit: Yes Status: Acute Priority: Medium Code(s): M00.9 - PYOGENIC ARTHRITIS, UNSPECIFIED SNOMED Code(s): 939711659 Comment: -RT knee warm, painful to bear weight, known h/o replacement -Will check CRP, ESR re deep infection -Asked Dr. Cisneros of orthopedics to evaluate, consider joint tap -Continue ceftriaxone Status and Disposition: continued inpatient stay for consults, NG tube management
--- NOTE | 2017-09-11 11:14 | PN ---
Progress Note - Progress Note Date of Service: 09/11/17 Note: HD#2 SBO Afeb No pain, No N/V. Thirsty. Passing flatus Abd: obese, soft nontender AXR: SBO resolved, contrast now in colon IMPR: Resolving SBO D/C NGT Decrease IVF Increase po's Disch when jacinto po's well
[2017-09-11] MEDS: EMOLLIENT TOPICAL SCH (14:27)
[2017-09-11] MEDS: BETAMETHASONE TOPICAL SCH ×2 (14:30→19:48)
[2017-09-11] MEDS: CLOTRIMAZOLE TOPICAL SCH ×2 (14:30→19:48)
[2017-09-11 14:46] LABS: Body Fluid Total Cells Counted 100; Body Fluid WBC 40990 /mcL
[2017-09-11 14:47] LABS: Body Fluid Appearance Bloody
[2017-09-11] MEDS ORDERED: Acetaminophen TAB* 325 MG PO PRN (16:30)
[2017-09-11] MEDS ORDERED: Acetaminophen TAB* 325 MG ONE (16:35)
--- NOTE | 2017-09-11 17:14 | CONS ---
CONSULTATION REPORT: DATE OF CONSULT: 09/11/17 CHIEF COMPLAINT: Right knee pain. HISTORY OF PRESENT ILLNESS: Sandeep is a 66-year-old man who has a history of right knee replacement followed by an infection and a two-stage revision of the right knee. Re-implantation of the knee replacement was in 2014. He has a problem with recurrent cellulitis and 2 weeks ago, started having some redness of his right lower extremity. He was admitted to the [facility], treated for cellulitis and then was discharged to the hospital on some IV antibiotics. He has an appointment in 2 days with his orthopedic surgeon. He has developed swelling in the right knee as well and he states it feels similar to when he got an infection in the knee joint in the past. He has pain in the right knee and has trouble bearing weight and moving his knee. He is admitted to [facility] with a small bowel obstruction, but this has now resolved and he is expected to be discharged home tomorrow. He had an x-ray of the right knee and I do not see any apparent loosening of the implant or the cement and the knee is well aligned. PHYSICAL EXAM: He is a healthy appearing, very pleasant man, in mild discomfort at rest. His right knee has a fairly substantial effusion. There is erythema of his right lower extremity and swelling of the lower extremity from the mid thigh down to the ankle. There are some skin changes consistent with cellulitis in the lateral aspect of the right leg. The patient has range of motion of this knee actively, but it is painful. There are no skin abrasions around the knee. IMPRESSION: Right lower extremity cellulitis with a possible septic arthritis in a total knee. PLAN/RECOMMENDATIONS: I recommended aspiration of the right knee. The patient agreed to proceed. After sterile prep in a nonerythematous area of the knee, an 18- gauge needle was introduced in the suprapatellar pouch. This was done after a time- out procedure was performed. There was 40 mL of cloudy blood- tinged fluid. This was sent for culture and sensitivity, Gram stain and cell count. The patient was instructed to keep his appointment with his orthopedic surgeon in [place], Dr. Sam Church, and hopefully by the time he is seen there, we will have the results of the cultures. [id number]/[facility] #: [id number] [facility]
[2017-09-12] MEDS: Heparin VIAL(*) 5000 UNITS/ML VIAL (FIVE THOUSAND) SUBCUT SCH ×2 (05:34→15:06)
[2017-09-12 05:47] LABS: Hematocrit 34 % (42-52); Hemoglobin 11.7 g/dl (14.0-18.0); Mean Corpuscular HGB Conc 35 g/dl (31-36); Mean Corpuscular Hemoglobin 32 pg (27-31); Mean Corpuscular Volume 92 fL (80-94); Mean Platelet Volume 7 um3 (7.4-10.4); Red Blood Count 3.64 10^6/ul (4.0-5.4); Red Cell Distribution Width 13 % (10.5-15); White Blood Count 5.9 10^3/ul (3.5-10.8)
[2017-09-12 06:03] LABS: BUN/Creatinine Ratio 11.8 (8-20); Calcium 8.4 mg/dL (8.6-10.3); EGFR African American 132.8 (>60); EGFR Non-African American 103.3 (>60); Potassium 3.5 mmol/L (3.5-5.0)
[2017-09-12 06:27] LABS: Erythrocyte Sed Rate 116 mm/Hr (0-20)
[2017-09-12] MEDS: NS 0.9% 1000 ML* 1,000 ML IV SCH (07:46)
[2017-09-12] MEDS: Famotidine IV* 10 MG/ML 2 ML (20 mg) IV SCH (08:54)
[2017-09-12] MEDS: cefTRIAXone VIAL(*) 2,000 MG in NS 0.9% 100 ML* 100 ML IVPB SCH (08:55)
[2017-09-12] MEDS: Finasteride TAB* 5 MG PO SCH (08:56)
[2017-09-12] MEDS: Aspirin EC Low Dose* 81 MG TAB.EC PO SCH (08:56)
[2017-09-12] MEDS: Tamsulosin CAP* 0.4 MG PO SCH (08:56)
[2017-09-12] MEDS: Montelukast Sodium TAB* 10 MG PO SCH (08:56)
[2017-09-12] MEDS: Venlafaxine EXT RELEASE CAP* 75 MG PO SCH (08:56)
[2017-09-12] MEDS: CLOTRIMAZOLE TOPICAL SCH (08:58)
[2017-09-12] MEDS: BETAMETHASONE TOPICAL SCH (08:58)
[2017-09-12] MEDS: EMOLLIENT TOPICAL SCH (08:58)
--- NOTE | 2017-09-12 13:59 | PN ---
Subjective Date of Service: 09/12/17 Interval History: Patient seen and examined at bedside. Patient reports improved bloating and denies abdominal pain. Denies fever. Reports knee pain about the same. Ambulating with walker. Family History: Unchanged from Admission Social History: Unchanged from Admission Past Medical History: Unchanged from Admission Objective Active Medications: Acetaminophen (Tylenol Supp*) 650 mg KS Q6H PRN Acetaminophen (Tylenol Tab*) 975 mg PO Q6H PRN Aspirin (Aspirin Ec Low Dose*) 81 mg PO DAILY [facility] Betamethasone/Clotrimazole (Lotrisone Cream*) 1 applic TOPICAL BID [facility] Docusate Sodium (Colace Cap*) 100 mg PO BID PRN Emollient Ointment (Hydrophor*) 1 applic TOPICAL DAILY [facility] Famotidine (Pepcid Iv*) 20 mg IV BID [facility] Finasteride (Proscar Tab*) 5 mg PO DAILY [facility] Glycerin (Glycerin Adult Supp*) 1 supp [place] DAILY [facility]N Heparin Sodium (Porcine) (Heparin Vial(*)) 5,000 units SUBCUT Q8HR [facility] Heparin Sodium (Porcine) (Heparin Flush Picc/Ml/Cvc(*)) 1 - 3 ml FLUSH 0600, 1800 [facility] Ceftriaxone Sodium 2,000 mg/ (Sodium Chloride) 100 mls @ 400 mls/hr IVPB 0830 [facility] Sodium Chloride (Ns 0.9% 1000 Ml*) 1,000 mls @ 50 mls/hr IV PER RATE [facility] Lorazepam (Ativan Inj*) 0.5 mg IV BEDTIME PRN Montelukast Sodium (Singulair Tab*) 10 mg PO DAILY [facility] Morphine Sulfate (Morphine Inj (Syringe)*) 2 mg IV Q4H PRN Ondansetron HCl (Zofran Inj*) 4 mg IV Q6H PRN Tamsulosin HCl (Flomax Cap*) 0.4 mg PO DAILY [facility] Venlafaxine HCl (Effexor Xr Cap*) 75 mg PO DAILY [facility] Vital Signs Temp Pulse Resp BP Pulse Ox 98.3 F 81 16 136/80 93 09/12/17 07:15 09/12/17 07:15 09/12/17 08:00 09/12/17 07:15 09/12/17 07:15 Oxygen Devices in Use Now: None Appearance: sitting up in bed, NAD Eyes: No Scleral Icterus, PERRLA Ears/Nose/Mouth/Throat: NL Teeth, Lips, Gums Neck: NL Appearance and Movements; NL JVP, Trachea Midline Respiratory: Symmetrical Chest Expansion and Respiratory Effort, Clear to Auscultation Cardiovascular: NL Sounds; No Murmurs; No JVD, RRR Abdominal: NL Sounds; No Tenderness; No Distention Extremities: No Edema Skin: - - erythema at right knee. no fluid collections palpable. Neurological: Alert and Oriented x 3, NL Muscle Strength and Tone Lines/Tubes/Other Access: Clean, Dry and Intact Peripheral IV Result Diagrams: 09/12/17 05:35 09/12/17 05:35 Additional Lab and Data: . Microbiology and Other Data: . Assess/Plan/Problems-Billing 66 year old man admitted w/ SBO, no history of abdominal surgery on IV ceftriaxone for R knee cellulits. - Patient Problems (1) Small bowel obstruction Comment: Improved. Tolerating regular diet. (2) Septic arthritis of knee, right Comment: Continue ceftriaxone. ESR and CRP elevated. Plan for pt to follow with ortho in [place] tomorrow. Culture from tap yesterday showed no growth. Discussed that patient should return to hospital for high fevers and worsening pain. (3) DVT prophylaxis Comment: SCDs (4) Full code status Status and Disposition: Inpatient. Stable to be discharged home with f/u tomorrow with surgeon.
[2017-09-12 16:04] VITALS: BP 106/73
--- NOTE | 2017-09-12 17:41 | DS ---
CC: Dr. Dunn; Dr. Sam Church; Dr. Cisneros; Dr. Phelps.* DISCHARGE SUMMARY: DATE OF ADMISSION: 09/09/17. DATE OF DISCHARGE: 09/12/17. PRIMARY CARE PROVIDER: Dr. Dunn. ORTHOPEDIC SURGERY: Dr. Sam Church, [place], [place]. ATTENDING PHYSICIAN: Candida Molina MD * (report dictated by Larissa Gusman, nurse practitioner). PRIMARY DIAGNOSES: 1. Small bowel obstruction. 2. Right lower extremity cellulitis, group A strep. SECONDARY DIAGNOSES: 1. Prediabetes. 2. Hypertension. 3. Obstructive sleep apnea. 4. Benign prostatic hyperplasia. 5. Depression. STUDIES WHILE IN THE HOSPITAL: 1. Abdomen complete 2 views, 09/11/17, resolving small bowel obstruction. 2. Knee right 1 to 2 views 09/10/17, suprapatellar effusion. Patient is status post right knee replacement. 3. Abdomen KUB 09/10/17, contrast in the colon. Dilated air fluid level consistent with small bowel obstruction persists. 4. CT scan of the abdomen and pelvis with contrast 09/08/17. There is suggestion of a small bowel obstruction. There appears to be transition just to the right of midline in the pelvis. No other masses or fluid collections are identified. Degenerative changes of the lumbar spine is noted at multiple levels. CONSULTATIONS WHILE IN THE HOSPITAL: Dr. Phelps, Surgery. Dr. Kalli Cisneros , Orthopedic Surgery. MEDICATION AT DISCHARGE: New medication: 1. Tylenol 975 mg every 6 hours as needed. The following medications are the medications the patient will continue which he was on at the time of admission: 1. Flomax 0.4 mg oral daily. 2. VESIcare 10 mg oral daily. 3. Proscar 5 mg oral daily. 4. Singulair 10 mg oral daily. 5. Effexor 75 mg oral daily. 6. Rocephin 2 g IV daily. 7. Mobic 15 mg oral daily. HISTORY OF PRESENT ILLNESS AND HOSPITAL COURSE: Mr. Conroy is a 66-year-old male with history of recurrent right knee cellulitis, currently with a PICC line receiving 2 g of ceftriaxone daily, who presents to the emergency room with a complaint of decreased oral intake, nausea, vomiting as well as abdominal pain cramping and distention. He was recently admitted to [facility] for sepsis secondary to right lower extremity cellulitis. He was discharged on 08/30/17 from that admission. He had been receiving 2 g of ceftriaxone daily for strep A cellulitis and planned to see his orthopedic surgeon Dr. Sam Church on 09/13/17. In the emergency room, the patient had a CT scan that showed findings consistent with small bowel obstruction. He was placed on the surgical floor with an NG tube and made NPO for bowel rest. He was seen in consultation by Dr. Phelps. Please see his consultation for detail. The patient was improving quite well with IV hydration and nasogastric decompression. The patient had serial abdominal x-rays that showed improvement. On 09/11/17, the nasogastric tube was removed and the patient was started on clear liquid diet. He tolerated this well and slowly advanced to full liquid and subsequently on 09/12/17, to regular diet. The patient had a bowel movement on 09/11/17 with significant improvement in distention. For his right lower extremity cellulitis, there was concern for possible septic arthritis given the significant knee pain. When the patient presented to the emergency room, he was ambulating with a walker. His pain and mobility have not worsened since his admission. He did have a knee x-ray that showed a suprapatellar effusion. He was seen in consultation by Dr. Cisneros. Dr. Cisneros performed knee aspiration. The culture shows no growth from that. Recommendations from Orthopedic Surgery was for the patient to continue his IV ceftriaxone and see his regularly scheduled followup with his orthopedic surgeon which will be tomorrow, 09/13/17. With his sed rate elevated about 117 and CRP elevated at 148, there is concern of septic arthritis. Currently, the patient does not have any leukocytosis and he is stable with his current daily IV ceftriaxone therapy. I discussed at length with the patient signs of worsening sepsis including high fever, elevated heart rate, dizziness, low blood pressure. If he experiences any of these symptoms or worsening pain, he has been instructed to return to the hospital immediately. On 09/12/17, vitals were as follows: Temperature 98.3, heart rate 81, respiratory rate 16, oxygen saturation 93% on room air, blood pressure 136/80. At this point, patient was stable for discharge home. DISCHARGE PLAN: Patient is discharged on a regular diet. The patient has been instructed to follow up with his primary care provider, Dr. Dunn within 4 to 7 days. The patient should continue IV antibiotics and keep his scheduled appointment with Dr. Sam Church which is tomorrow 09/13/17. As stated previously, the patient should return to the emergency room if he has a fever greater than 101, diaphoresis, chills, low blood pressure or elevated heart rate or significant pain limiting his mobility. I reviewed all these with the patient. He is agreeable with his discharge today. This is a summarized report of a complex medical history and hospital stay. For more details, please see the entire medical record. TIME SPENT: Time for this discharge was 60 minutes and 35 minutes was spent with the patient discussing medications, discharge, and followup instructions. CONDITION ON DISCHARGE: Stable. LARISSA GUSMAN NP [id number]/CPS #: [id number] RITO
[2017-09-13 15:23] LABS: Albumin 2.3 g/dL (3.4-4.7); Gamma Globulin 3.3 g/dL (0.6-1.6)
== END 2017-09-12 18:33 | disposition home health service (06) | DRG 247 ==
LOC: ED 19:16 → SSU 09-09 00:52
PROVIDERS: ADMIT Hospitalist; ATTEND Internal Medicine
PROC: 0D9670Z Drainage of Stomach with Drainage Device, Via Natural or Artificial Opening (ICD-10-PCS; 2017-09-09)
PROC: 0S9C3ZX Drainage of Right Knee Joint, Percutaneous Approach, Diagnostic (ICD-10-PCS; principal; 2017-09-11)
DX: K56.609 Unspecified intestinal obstruction, unspecified as to partial versus complete obstruction (principal); L03.115 Cellulitis of right lower limb; M00.9 Pyogenic arthritis, unspecified; L03.116 Cellulitis of left lower limb; E66.01 Morbid (severe) obesity due to excess calories; D89.2 Hypergammaglobulinemia, unspecified; T84.53XA Infection and inflammatory reaction due to internal right knee prosthesis, initial encounter; Z68.41 Body mass index [BMI] 40.0-44.9, adult; I10 Essential (primary) hypertension; G47.33 Obstructive sleep apnea (adult) (pediatric); N40.0 Benign prostatic hyperplasia without lower urinary tract symptoms; F32.9 Major depressive disorder, single episode, unspecified; R73.03 Prediabetes; Y79.2 Prosthetic and other implants, materials and accessory orthopedic devices associated with adverse incidents; B95.0 Streptococcus, group A, as the cause of diseases classified elsewhere; Z23 Encounter for immunization; Z88.1 Allergy status to other antibiotic agents; Z88.2 Allergy status to sulfonamides; Z82.49 Family history of ischemic heart disease and other diseases of the circulatory system; Z72.89 Other problems related to lifestyle; Y92.9 Unspecified place or not applicable
CPT/HCPCS: 36415; 74000; 74020; 74177; 80048; 80053; 81003; 81015; 82565; 83036; 83605; 83690; 84155; 84165; 84484; 84520; 85025; 85027; 85610; 85652; 85730; 86141; 87070; 87205; 87640; 87641; 89051; 90686; 93005; A9270-GY; J0696; J1644; J2270; J2405; J3010; Q9967